=== PATIENT | female | born 1960 ===

== ENCOUNTER 2018-12-16 07:55 | Outpatient (CLI) | payer BC | END 2018-12-16 07:56 | disposition home or self-care (01) | LOC: C.CTH 07:55 | DX: J32.2 Chronic ethmoidal sinusitis (principal) ==

== ENCOUNTER 2019-01-20 10:02 | Outpatient (CLI) | payer BC | END 2019-01-20 10:03 | disposition home or self-care (01) | LOC: C.MRIC 10:02 | DX: H93.19 Tinnitus, unspecified ear (principal); R42 Dizziness and giddiness ==